=== PATIENT | female | born 1965 | race Caucasian/White ===

== ENCOUNTER → 2016-12-23 | Outpatient (CLI) | payer BC ==
--- NOTE | 2016-12-24 12:32 | MAMMOGRAPHY REPORT ---
BILATERAL DIGITAL SCREENING MAMMOGRAM TOMOSYNTHESIS WITH CAD: 12/23/2016 CLINICAL HISTORY: Routine screening examination. TECHNIQUE: Breast tomosynthesis in addition to standard 2D mammography was performed. Current study was also evaluated with a Computer Aided Detection (CAD) system. COMPARISON: Comparison is made to exams dated: 11/24/2014 mammogram, 11/26/2015 mammogram, 09/09/2012 mammogram, 09/09/2011 mammogram, 08/28/2010 mammogram - [facility], and 12/21/2007. BREAST COMPOSITION: The tissue of both breasts is heterogeneously dense, which may obscure small ma sses. FINDINGS: The parenchymal pattern is unchanged. There are scattered stable round and punctate micr ocalcifications in the breasts. No developing mass, architectural distortion or cluster of suspicio us microcalcifications is seen in either breast. IMPRESSION: ACR BI-RADS CATEGORY 2: BENIGN There is no mammographic evidence of malignancy. A 1 year screening mammogram is recommended. The p atient will receive written notification of the results. Approximately 10% of breast cancers are not detected with mammography. A negative mammographic repor t should not delay biopsy if a clinically suggestive mass is present. Vania Juares M.D. ay/:12/23/2016 16:14:00 It Sales Representative: Rossana CORONA)(Me[place]), [facility] letter sent: Normal 1/2 BI-RADS Code: ACR BI-RADS Category 2: Benign
== END | disposition home or self-care (01) ==
LOC: C.MAMM 09:07
PROVIDERS: ATTEND Family Medicine
DX: Z12.31 Encounter for screening mammogram for malignant neoplasm of breast (principal)

== ENCOUNTER → 2017-12-24 | Outpatient (CLI) | payer OTHER ==
--- NOTE | 2017-12-24 14:28 | MAMMOGRAPHY REPORT ---
BILATERAL DIGITAL SCREENING MAMMOGRAM TOMOSYNTHESIS WITH CAD: 12/24/2017 CLINICAL HISTORY: Routine screening. The patient has no current complaints. TECHNIQUE: Breast tomosynthesis in addition to standard 2D mammography was performed. Current study was also evaluated with a Computer Aided Detection (CAD) system. COMPARISON: Comparison is made to exams dated: 12/23/2016 mammogram, 11/26/2015 mammogram, 11/24/2014 nara mogram, 09/15/2013 mammogram, 09/09/2012 mammogram, and 09/09/2011 mammogram - [facility]. BREAST COMPOSITION: The tissue of both breasts is heterogeneously dense, which may obscure small mas ses. FINDINGS: No suspicious masses, calcifications, or areas of architectural distortion are noted in ei ther breast. There has been no significant interval change compared to prior exams. Scattered bilater al benign-appearing calcifications are not significantly changed. IMPRESSION: ACR BI-RADS CATEGORY 2: BENIGN There is no mammographic evidence of malignancy. A 1 year screening mammogram is recommended. The pa tient will receive written notification of the results. Approximately 10% of breast cancers are not detected with mammography. A negative mammographic report should not delay biopsy if a clinically suggestive mass is present. Veronica Wheeler M.D. ah/:12/24/2017 12:22:04 Bridge Tender: Alessandra CORONA)(M), [facility] letter sent: Normal 1/2 BI-RADS Code: ACR BI-RADS Category 2: Benign
== END | disposition home or self-care (01) ==
LOC: C.MAMM 09:49
PROVIDERS: ATTEND Family Medicine
DX: Z12.31 Encounter for screening mammogram for malignant neoplasm of breast (principal)

== ENCOUNTER → 2018-06-30 | Outpatient (CLI) | payer OTHER ==
--- NOTE | 2018-06-30 11:08 | DIAGNOSTIC IMAGING REPORT ---
SOFT TISS HEAD/NECK-THYROID CLINICAL HISTORY: 53 years-old Female presenting with NONTOXIC SINGLE THYROID NODULE. TECHNIQUE: Real-time grayscale and color Doppler ultrasound imaging of the thyroid and base of the neck was performed. COMPARISON: 04/16/2016. FINDINGS: Right lobe: Heterogeneity of echogenicity and echotexture due to the presence of underlying nodules. The right lobe of the thyroid measures 4.5 x 2.3 x 2.0 cm. No parenchymal hyperemia. Index nodule(s) enumerated below: 1. 0.7 x 0.7 x 0.6 cm upper pole almost completely cystic anechoic wfqef-sknl-fqvs nodule with smooth margins. No echogenic foci to suggest calcifications. TI-RADS 1: Benign. This previously measured 0.6 x 0.4 x 0.5 cm. 2. 2.5 x 2.1 x 1.3 cm lower pole solid isoechoic yfpme-fjuy-xplu nodule with smooth margins. No echogenic foci to suggest calcifications. TI-RADS 3: Mildly suspicious. This previously measured 2.2 x 1.2 x 1.8 cm. Left lobe: Heterogeneity of echogenicity and texture due to the presence of underlying nodules. The left lobe of the thyroid measures 4.8 x 1.7 x 1.3 cm. No parenchymal hyperemia. Index nodule(s) enumerated below: 1. 0.7 x 0.6 x 0.4 cm upper pole spongiform anechoic kzrjm-hiuc-yofx nodule with smooth margins. Large comet-tail artifacts suggesting colloid. TI-RADS 1: Benign. This previously measured 0.7 x 0.5 x 0.4 cm. Isthmus: The isthmus measures 3 mm in thickness. No parenchymal hyperemia. No nodules. Reference: TI-RADS 1: No biopsy. TI-RADS 2: No biopsy. TI-RADS 3: FNA if > or = to 2.5 cm; follow if > or = to 1.5 cm. TI-RADS 4: FNA if > or = to 1.5 cm; follow if > or = to 1 cm. TI-RADS 5: FNA if > or = to 1 cm; follow if > or = to 0.5 cm. Bucky FN, Evangelist WD, Benny EG. Thyroid Imaging Reporting and Data System (TI-RADS): A User's Guide. Radiology. 2018;287:29-36. Benny E, Bucky FN, Fausto KlineK, et al. Thyroid Ultrasound Reporting Lexicon: White Paper of the ACR Thyroid Imaging, Reporting and Data System (TIRADS) Committee. J Am Freda Radiol. 2015;203792-3000. IMPRESSION: 1. Multinodular thyroid. 2. Mildly suspicious 2.5 cm right thyroid lobe nodule. Fine-needle aspiration of this nodule would be recommended, however, this has only minimally increased in size since 2009 consistent with benign etiology. Continued ultrasound follow-up as clinically indicated. Electronically signed by: Justice London M.D. 06/30/2018 11:07 AM Dictated Date/Time: 06/30/2018 10:50 AM
== END | disposition home or self-care (01) ==
LOC: C.ULTR 10:10
PROVIDERS: ATTEND Family Medicine
DX: E04.2 Nontoxic multinodular goiter (principal); Z88.0 Allergy status to penicillin